=== PATIENT | male | born 1935 | race Caucasian/White ===

== ENCOUNTER 2020-05-29 07:55 | Emergency (ER) | payer MEDICARE ==
--- NOTE | 2020-05-29 08:24 | ED Physician Documentation ---
PD HPI BACK PAIN - Stated complaint Stated Complaint: BACK PX - Chief complaint Chief Complaint: Back Pain - History obtained from History obtained from: Patient, Family - History of Present Illness Timing - onset: How many weeks ago (1) Timing - duration: Weeks (1) Pain level max: 6 Pain level now: 2 Location: Lower Quality: Pain Associated symptoms: No: Fever, Weakness, Numbness, Incontinent of urine, Unable to urinate, Hematuria, Incontinent of stool Improves with: Rest Worsened by: Movement, Other (sitting) Contributing factors: No: Anticoagulated, Cancer, IVDA - Additional information Additional information: Patient is an 85-year-old male who presents after a ground-level fall 1 week ago. Landing on his buttocks. Has been complaining of increased sacrum and coccyx pain since that time. Worse with sitting and standing. Nothing makes it better. No vomiting. No loss of bowel or bladder control. No numbness or tingling. Review of Systems Constitutional: denies: Fever, Chills Respiratory: denies: Cough GI: denies: Nausea, Vomiting, Diarrhea Skin: denies: Rash Musculoskeletal: denies: Neck pain, Back pain Neurologic: denies: Headache PD PAST MEDICAL HISTORY - Present Medications Home Medications: Ambulatory Orders Medication Instructions Recorded Confirmed Aspirin Chewable [St El 81 mg PO DAILY 05/29/20 05/29/20 Aspirin] HYDROcod/ACETAM 5/325 [[place] 5/325] 1 - 2 ea PO Q6H PRN #14 tab 05/29/20 Lisinopril [Prinivil] 5 mg PO DAILY 05/29/20 05/29/20 Melatonin 3 mg PO DAILY PM 05/29/20 05/29/20 Simvastatin [Zocor] 40 mg PO DAILY 05/29/20 05/29/20 bisoproloL fumarate [Bisoprolol 2.5 mg PO DAILY 05/29/20 05/29/20 Fumarate] - Allergies Allergies/Adverse Reactions: Allergies Allergy/AdvReac Type Severity Reaction Status Date / Time No Known Drug Allergies Allergy Verified 05/29/20 08:11 PD ED PE NORMAL - Vitals Vital signs reviewed: Yes - General General: Alert and oriented X 3, No acute distress - HEENT HEENT: Moist mucous membranes - Neck Neck: Supple, no meningeal sign - Cardiac Cardiac: RRR - Respiratory Respiratory: No respiratory distress, Clear bilaterally - Abdomen Abdomen: Soft, Non tender, Non distended - Back Back: No spinal TTP (No tenderness palpation over the lumbar spine, there is tenderness over the sacrum and coccyx. No ecchymosis is visible. No soft tissue swelling.) - Derm Derm: Warm and dry, Other (Slight skin breakdown on the buttocks. No signs of infection) - Extremities Extremities: No edema - Neuro Neuro: Alert and oriented X 3 - Psych Psych: Normal mood, Normal affect Results - Vitals Vitals: Vital Signs - 24 hr 05/29/20 05/29/20 08:07 09:42 Temperature 36.0 C L 36.1 C L Heart Rate 76 69 Respiratory 16 16 Rate Blood Pressure 131/79 H 164/95 H O2 Saturation 96 98 Oxygen O2 Source Room air - Rads (name of study) CT pelvis Radiology: Prelim report reviewed, EMP read contemporaneously, See rad report PD MEDICAL DECISION MAKING - ED course Complexity details: reviewed results, re-evaluated patient, considered differential, d/w patient ED course: 85-year-old male with a sacral contusion. No acute findings on CT of the pelvis other than likely arthritis versus an avulsion fracture near the right anterior acetabulum, no tenderness or symptoms at this area however, doubt that this is clinically relevant at this point. A dressing was applied to the early sacral decubitus ulcer. We will have him follow-up with his doctor for referral to wound care. Patient and family counseled regarding signs and symptoms for which I believe and urgent re-evaluation would be necessary. Patient with good understanding of and agreement to plan and is comfortable going home at this time This document was made in part using voice recognition software. While efforts are made to proofread this document, sound alike and grammatical errors may occur. Departure - Departure Disposition: Home, Self Care Clinical Impression: Sacral contusion Qualifiers: Encounter type: initial encounter Qualified Code(s): S30.0XXA - Contusion of lower back and pelvis, initial encounter Sacral decubitus ulcer Qualifiers: Pressure injury stage: stage 1 Qualified Code(s): L89.151 - Pressure ulcer of sacral region, stage 1 Condition: Good Instructions: Pressure Ulcer Reduce Patient Risk, ED Contusion Sacrum Coccyx Follow-Up: your,doctor in 1 week [Other] Prescriptions: HYDROcod/ACETAM 5/325 [[place] 5/325] 1 - 2 ea PO Q6H PRN #14 tab PRN Reason: Pain Comments: Follow-up with your doctor for further care. They may need to order wound care to ensure that the sacral ulcer does not get any worse. There are no acute findings on CT scan. Do not drink alcohol or drive while on narcotic pain medicine. Note that many narcotic pain relievers also contain tylenol/acetaminophen. Please ensure that your total dose of acetaminophen from all sources does not exceed 3 grams (3000mg) per day. You may constipated on this medication, take a stool softener such as "Colace" twice a day while you are on it. Also recommend a ntxd-[id number] laxative such as senna or MiraLAX any day that you do not have a bowel movement. If you received narcotic pain medication in the emergency department, do not drive or operate machinery for the next 24 hours. Discharge Date/Time: 05/29/20 09:47
--- NOTE | 2020-05-29 09:13 | CT Report ---
PROCEDURE: PELVIS WO INDICATIONS: fall, pelvic/sacrum pain TECHNIQUE: Noncontrast 3 mm axial sections acquired through the bony pelvis, with coronal and sagittal reformatt ing. For radiation dose reduction, the following was used: automated exposure control, adjustment of mA and/or kV according to patient size. COMPARISON: None. FINDINGS: Image quality: Excellent. Bones: Left hip arthroplasty is present. There is a questionable ossification adjacent to the anteri or right acetabulum seen on series 3 image 47 and series 7 image 91. Remaining osseous structures lizzie ear intact. Soft tissues: Soft tissues of the pelvis are grossly within normal limits. IMPRESSION: 1. Questionable avulsion injury versus degenerative change/remote trauma at the right anterior acetab ulum. Recommend correlation to area of pain. If overall symptoms persist, follow-up imaging with MRI may be obtained for evaluation of occult injury. Reviewed by: Shira Mcghee MD on 05/29/2020 8:11 AM [facility] Approved by: Shira Mcghee MD on 05/29/2020 8:11 AM [facility] Station ID: [id number]
[2020-05-29 09:43] VITALS: BP 164/95
== END 2020-05-29 09:47 | disposition home or self-care (01) ==
LOC: ED 07:55
DX: S30.0XXA Contusion of lower back and pelvis, initial encounter (principal); W05.0XXA Fall from non-moving wheelchair, initial encounter; Y93.89 Activity, other specified; L89.151 Pressure ulcer of sacral region, stage 1; Z96.642 Presence of left artificial hip joint; Z79.82 Long term (current) use of aspirin
CPT/HCPCS: 99284

== ENCOUNTER 2020-09-21 07:48 | Outpatient (CLI) | payer MEDICARE | END 2020-09-21 23:59 | disposition critical access hospital (66) | LOC: EMS 07:48 | DX: R40.4 Transient alteration of awareness (principal); R29.810 Facial weakness | CPT/HCPCS: A0425; A0427 ==

== ENCOUNTER 2020-09-21 08:08 | Inpatient (IN) | payer MEDICARE ==
--- NOTE | 2020-09-21 08:28 | ED Physician Documentation ---
PD HPI SYNCOPE - Stated complaint Stated Complaint: SYNCOPE VS STROKE - History obtained from History obtained from: Patient, EMS, Caregiver - History of Present Illness Timing - onset: How many minutes ago (30), Today Duration: Minutes (less than a minute) Preceding symptoms: Generalized weakness, Other (he says he felt warmth/flush and then not remembering until awoke with caregiver attending to him. He does remember EMS coming after that. Denies chest pain, headache.). No: Chest pain Contributing factors: Exertion (was out of care facility yesterday with family and had barbecue with moderate activity. He states he did not feel exerted though.). No: Recent med change, Decreased PO intake Similar symptoms before: Has not had sx before Recently seen: Not recently seen Review of Systems Constitutional: denies: Fever, Chills Nose: denies: Rhinorrhea / runny nose, Congestion Throat: denies: Sore throat Cardiac: reports: Pedal edema. denies: Chest pain / pressure, Palpitations, Calf pain Respiratory: denies: Dyspnea, Cough GI: denies: Abdominal Pain, Nausea, Vomiting, Diarrhea Skin: denies: Abrasion (s), Laceration (s) Musculoskeletal: reports: Extremity pain (right shoulder pain and stiffness normally, with feeling weaker in mornings "until it loosens up". Gets PT on the shoulder. Does not feel it is weaker than usual today, and no leg/face weakness.) Neurologic: reports: Syncope. denies: Focal weakness, Numbness, Headache, Head injury PD PAST MEDICAL HISTORY - Past Medical History Cardiovascular: Hypertension, High cholesterol, Other Respiratory: None Neuro: None Endocrine/Autoimmune: None GI: None : None HEENT: None Psych: None Musculoskeletal: None Derm: None - Past Surgical History Past Surgical History: Yes Ortho: Hip replacement Derm: Skin cancer surgery - Present Medications Home Medications: Ambulatory Orders Medication Instructions Recorded Confirmed Aspirin Chewable [St El 81 mg PO DAILY 05/29/20 09/21/20 Aspirin] HYDROcod/ACETAM 5/325 [[place] 5/325] 1 - 2 ea PO Q6H PRN #14 tab 05/29/2009/02 Melatonin 6 mg PO DAILY PM 05/29/20 09/21/20 Simvastatin [Zocor] 40 mg PO DAILY 05/29/20 09/21/20 bisoproloL fumarate [Bisoprolol 2.5 mg PO DAILY 05/29/20 09/21/20 Fumarate] lisinopriL [Prinivil] 2.5 mg PO DAILY 05/29/20 09/21/20 - Allergies Allergies/Adverse Reactions: Allergies Allergy/AdvReac Type Severity Reaction Status Date / Time acetaminophen [From Percocet] AdvReac Dizziness Verified 09/21/20 08:37 oxycodone [From Percocet] AdvReac Dizziness Verified 09/21/20 08:37 - Social History Does the pt smoke?: No Smoking Status: Never smoker Does the pt drink ETOH?: No Does the pt have substance abuse?: No - Immunizations Immunizations are current?: Yes - POLST Patient has POLST: No PD ED PE NORMAL - Vitals Vital signs reviewed: Yes - General General: Alert and oriented X 3, No acute distress, Well developed/nourished - HEENT HEENT: Atraumatic, Pharynx benign - Neck Neck: Supple, no meningeal sign, No adenopathy - Cardiac Cardiac: RRR, No murmur - Respiratory Respiratory: No: Clear bilaterally (faint crackles in bases) - Abdomen Abdomen: Soft, Non tender - Derm Derm: Normal color, Warm and dry - Extremities Extremities: No calf tenderness / cord, Other (right shoulder stiffness and weak ROM. 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 1+ edema in both lower legs with chronic stasis color changes. ) - Neuro Neuro: Alert and oriented X 3, No motor deficit, Normal speech Eye Opening: Spontaneous Motor: Obeys Commands Verbal: Oriented GCS Score: 15 Results - Vitals Vitals: Vital Signs - 24 hr 09/21/20 09/21/20 09/21/20 08:07 08:10 09:00 Temperature 36.8 C Heart Rate 72 66 Heart Rate [ Monitoring electrodes] Respiratory 20 28 H Rate Blood Pressure 136/72 H 127/62 Blood Pressure [Right Brachial artery] O2 Saturation 89 L 94 90 L 09/21/20 09/21/20 09/21/20 09:30 10:00 10:30 Temperature Heart Rate 73 69 71 Heart Rate [ Monitoring electrodes] Respiratory 26 H 28 H 25 H Rate Blood Pressure 155/49 H 130/74 132/53 H Blood Pressure [Right Brachial artery] O2 Saturation 94 94 94 09/21/20 09/21/2021 11:00 11:47 12:12 Temperature 36.4 C L Heart Rate 89 Heart Rate [ 86 Monitoring electrodes] Respiratory 18 16 Rate Blood Pressure 120/48 L Blood Pressure 124/63 [Right Brachial artery] O2 Saturation Oxygen O2 Source Nasal cannula - EKG (time done) 08:13 Rate: Rate (enter#) (70) Rhythm: Atrial fibrillation Intervals: Wide QRS Ischemia: No: ST elevation c/w ischemia, ST depression - Labs Labs: Laboratory Tests 09/21/20 09/21/20 09/21/20 08:39 08:39 08:39 WBC 5.8 RBC 3.96 L Hgb 12.0 L Hct 38.3 L MCV 96.7 H MCH 30.3 MCHC 31.3 L RDW 16.0 H Plt Count 83 L MPV 12.1 H Neut # (Auto) 4.7 Lymph # (Auto) 0.6 L [place] # (Auto) 0.4 Eos # (Auto) 0.0 Baso # (Auto) 0.0 Absolute Nucleated RBC 0.00 Nucleated RBC % 0.0 Sodium 145 Potassium 4.9 Chloride 109 Carbon Dioxide 26 Anion Gap 10.0 BUN 32 H Creatinine 1.0 Estimated GFR (MDRD) 71 L Glucose 157 H Calcium 8.8 Magnesium 2.2 Total Bilirubin 0.9 AST 84 H ALT 109 H Alkaline Phosphatase 69 Troponin I High Sens 44.8 H* B-Natriuretic Peptide Total Protein 6.5 L Albumin 3.3 Globulin 3.2 Albumin/Globulin Ratio 1.0 Lipase 18 L Nasal Adenovirus (PCR) Nasal B. parapertussis DNA (PCR) Nasal Coronavir 229E PCR Nasal Coronavir HKU1 PCR Nasal Coronavir NL63 PCR Nasal Coronavir OC43 PCR Nasal Enterovir/Rhinovir PCR Nasal Influenza B PCR Nasal Influenza A PCR Nasal Parainfluen 1 PCR Nasal Parainfluen 2 PCR Nasal Parainfluen 3 PCR Nasal Parainfluen 4 PCR Nasal RSV (PCR) Nasal Screen MRSA (PCR) Nasal B.pertussis DNA PCR Nasal C.pneumoniae (PCR) [place] Human Metapneumo PCR Nasal M.pneumoniae (PCR) Nasal SARS-CoV-2 (PCR) 09/21/20 09/21/20 09/21/20 08:39 10:08 11:13 WBC RBC Hgb Hct MCV MCH MCHC RDW Plt Count MPV Neut # (Auto) Lymph # (Auto) [place] # (Auto) Eos # (Auto) Baso # (Auto) Absolute Nucleated RBC Nucleated RBC % Sodium Potassium Chloride Carbon Dioxide Anion Gap BUN Creatinine Estimated GFR (MDRD) Glucose Calcium Magnesium Total Bilirubin AST ALT Alkaline Phosphatase Troponin I High Sens 52.9 H* B-Natriuretic Peptide 1806 H Total Protein Albumin Globulin Albumin/Globulin Ratio Lipase Nasal Adenovirus (PCR) NOT DETECTED Nasal B. parapertussis DNA (PCR) NOT DETECTED Nasal Coronavir 229E PCR NOT DETECTED Nasal Coronavir HKU1 PCR NOT DETECTED Nasal Coronavir NL63 PCR NOT DETECTED Nasal Coronavir OC43 PCR NOT DETECTED Nasal Enterovir/Rhinovir PCR NOT DETECTED Nasal Influenza B PCR NOT DETECTED Nasal Influenza A PCR NOT DETECTED Nasal Parainfluen 1 PCR NOT DETECTED Nasal Parainfluen 2 PCR NOT DETECTED Nasal Parainfluen 3 PCR NOT DETECTED Nasal Parainfluen 4 PCR NOT DETECTED Nasal RSV (PCR) NOT DETECTED Nasal Screen MRSA (PCR) Nasal B.pertussis DNA PCR NOT DETECTED Nasal C.pneumoniae (PCR) NOT DETECTED [place] Human Metapneumo PCR NOT DETECTED Nasal M.pneumoniae (PCR) NOT DETECTED Nasal SARS-CoV-2 (PCR) NOT DETECTED 09/21/20 12:50 WBC RBC Hgb Hct MCV MCH MCHC RDW Plt Count MPV Neut # (Auto) Lymph # (Auto) [place] # (Auto) Eos # (Auto) Baso # (Auto) Absolute Nucleated RBC Nucleated RBC % Sodium Potassium Chloride Carbon Dioxide Anion Gap BUN Creatinine Estimated GFR (MDRD) Glucose Calcium Magnesium Total Bilirubin AST ALT Alkaline Phosphatase Troponin I High Sens B-Natriuretic Peptide Total Protein Albumin Globulin Albumin/Globulin Ratio Lipase Nasal Adenovirus (PCR) Nasal B. parapertussis DNA (PCR) Nasal Coronavir 229E PCR Nasal Coronavir HKU1 PCR Nasal Coronavir NL63 PCR Nasal Coronavir OC43 PCR Nasal Enterovir/Rhinovir PCR Nasal Influenza B PCR Nasal Influenza A PCR Nasal Parainfluen 1 PCR Nasal Parainfluen 2 PCR Nasal Parainfluen 3 PCR Nasal Parainfluen 4 PCR Nasal RSV (PCR) Nasal Screen MRSA (PCR) NEGATIVE Nasal B.pertussis DNA PCR Nasal C.pneumoniae (PCR) [place] Human Metapneumo PCR Nasal M.pneumoniae (PCR) Nasal SARS-CoV-2 (PCR) - Rads (name of study) chest xray Radiology: Prelim report reviewed (some vascular congestion), See rad report PD MEDICAL DECISION MAKING - ED course Complexity details: considered differential (sounds like syncopal episode. Concern for cardiac cause, with some appearance of CHF on exam/cxr/BNP. Has elevated troponin mildly. Will need further cardiac eval. EMS had concern of CVA, but symptoms really do not sound like cerebrovascular. ), d/w patient Departure - Departure Disposition: ED Place in Observation Clinical Impression: Elevated troponin Episode of syncope Qualifiers: Syncope type: unspecified Qualified Code(s): R55 - Syncope and collapse CHF (congestive heart failure) Qualifiers: Heart failure type: unspecified Qualified Code(s): I50.9 - Heart failure, unspecified Right shoulder pain Qualifiers: Chronicity: chronic Qualified Code(s): M25.511 - Pain in right shoulder Condition: Stable Discharge Date/Time: 09/21/20 11:37
[2020-09-21 08:45] LABS: BASOPHILS % (AUTO) 0.5 %; EOSINOPHILS % (AUTO) 0.2 %; HCT - HEMATOCRIT 38.3 % (42.0-52.0); LYMPHOCYTES # (AUTO) 0.6 10^3/uL (1.5-3.5); LYMPHOCYTES % (AUTO) 10.7 %; MEAN CORPUSCULAR HEMOGLOBIN 30.3 pg (27.0-31.0); MEAN CORPUSCULAR HGB CONC 31.3 g/dL (32.0-36.0); MEAN CORPUSCULAR VOLUME 96.7 fL (80.0-94.0); MEAN PLATELET VOLUME 12.1 fL (7.4-11.4); MONOCYTES # (AUTO) 0.4 10^3/uL (0.0-1.0); MONOCYTES % (AUTO) 7.1 %; NEUTROPHILS # (AUTO) 4.7 10^3/uL (1.5-6.6); NEUTROPHILS % (AUTO) 81.2 %; PLT - PLATELET COUNT 83 10^3/uL (130-450); RED BLOOD COUNT 3.96 10^6/uL (4.70-6.10); WHITE BLOOD COUNT 5.8 x10^3/uL (4.8-10.8)
--- NOTE | 2020-09-21 08:46 | XRAY Report ---
PROCEDURE: Chest 1 View X-Ray INDICATIONS: Chest Pain TECHNIQUE: One view of the chest was acquired. COMPARISON: FINDINGS: Surgical changes and devices: Sternotomy wires, prior CABG or heart valve surgery.. Lungs and pleura: No pleural effusions or pneumothorax. Lungs are mildly edematous.. Mediastinum: Mediastinal contours appear normal. Heart size is at the upper limits of normal. Bones and chest wall: No suspicious bony lesions. Overlying soft tissues appear unremarkable. IMPRESSION: Pulmonary edema pattern, prior CABG or heart valve surgery. Suspect there is an acute exacerbation of chronic CHF. Reviewed by: Chidi Townsend MD on 09/21/2020 8:44 AM PDT Approved by: Chidi Townsend MD on 09/21/2020 8:44 AM PDT Station ID: [id number]
[2020-09-21 08:59] LABS: ALBUMIN 3.3 g/dL (3.2-5.5); BILIRUBIN,TOTAL 0.9 mg/dL (0.2-1.0); CALCIUM 8.8 mg/dL (8.5-10.3); MAGNESIUM 2.2 mg/dL (1.7-2.8); POTASSIUM 4.9 mmol/L (3.5-5.0); TOTAL PROTEIN 6.5 g/dL (6.7-8.2)
[2020-09-21] MEDS ORDERED: FUROSEMIDE 20 MG/2 ML VIAL IVP STA (09:46)
[2020-09-21] MEDS ORDERED: SODIUM CHLORIDE FLUSH 0.9% 10 ML SYRINGE IVP PRN ×2 (10:48→12:59)
[2020-09-21] MEDS ORDERED: ONDANSETRON 4 MG/2 ML VIAL IVP PRN (10:48)
[2020-09-21] MEDS ORDERED: HYDROcod/ACETAM 5/325 MG TABLET PO PRN (11:02)
--- NOTE | 2020-09-21 11:12 | HISTORY & PHYSICAL EXAMINATION ---
Chief Complaint - Chief Complaint Chief Complaint: Fainted History of Present Illness - Admitted From Admitted From:: ED - History Obtained From History obtained from: ED provider and patient - History of Present Illness HPI Comment/Other: This is a 85-year-old white male with a history of a porcine mitral valve replacement and arthritis for a frozen rigjht shoulder for which he gets physical therapy. The patient lives at [facility]. The patient was found by his caregiver slumped in his chair for about 30 seconds. Paramedics were called, he was awake when they had arrived and he can remember their arrival. The first blood pressure at the scene was stable as well as glucose. In the emergency room she told the ER provider that he "felt warm" just before fainting . This is never happened to him before. The patient states that he had a weekend out with his family, and attended a barbecue on Father's Day (yesterday) but did not overdo it. He does admit to slight shortness of breath with activity over the past 2 days. The patient is being placed in Observation status on the Hospitalist team to evaluate a syncopal episode. History - Past Medical History Cardiovascular: reports: Hypertension, High cholesterol Respiratory: reports: None Neuro: reports: None Endocrine/Autoimmune: reports: None GI: reports: None : reports: None HEENT: reports: None Psych: reports: None Musculoskeletal: reports: None Derm: reports: None MRSA Hx?: No Other Past Medical History: essential tremors - Past Surgical History Ortho: reports: Hip replacement Cardiovascular: reports: Valve replacement Derm: reports: Skin cancer surgery - Family & Social History Living arrangement: Assisted living Living Situation: With spouse/s.o. Social History Notes: The patient never smoked cigarettes. The patient drinks rare alcohol, only on holidays. No marijuana use history. 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 When he was hospitalized for bacteremia, he was too weak to take care of her and they sold their house in [place], moved to [facility] to be closer to their son and currently living [facility] assisted living, for the past 4 mos. - Substance History Use: Uses substance without health or social issues: NONE - POLST Patient has POLST: No Meds/Allgy - Home Medications Home Medications: Ambulatory Orders Medication Instructions Recorded Confirmed Aspirin Chewable [St El 81 mg PO DAILY 05/29/20 09/21/20 Aspirin] HYDROcod/ACETAM 5/325 [[place] 5/325] 1 - 2 ea PO Q6H PRN #14 tab 05/29/20 09/21/20 Melatonin 6 mg PO DAILY PM 05/29/20 09/21/20 Simvastatin [Zocor] 40 mg PO DAILY 05/29/20 09/21/20 bisoproloL fumarate [Bisoprolol 2.5 mg PO DAILY 05/29/20 09/21/20 Fumarate] lisinopriL [Prinivil] 2.5 mg PO DAILY 05/29/20 09/21/20 - Allergies Allergies/Adverse Reactions: Allergies Allergy/AdvReac Type Severity Reaction Status Date / Time acetaminophen [From Percocet] AdvReac Dizziness Verified 09/21/20 08:37 oxycodone [From Percocet] AdvReac Dizziness Verified 09/21/20 08:37 Review of Systems - Cardiovascular Cariovascular: reports: Edema (Patient said the edema was never definitely diagnosed as venous insufficiency or from CHF), Exertional dyspnea, Other (Yesterday the son heard wheezing when the father was walking up an incline (at a Father's Day [facility])) - Neurological Neurological: reports: Other (Head and shoulder tremor, occasionally hand tremor) - All Other Systems All Other Systems: reports: Reviewed and negative Exam - Vital Signs Vital Signs: Vital Signs x48h Temp Pulse Resp BP Pulse Ox 09/21/20 09:30 73 26 H 155/49 H 94 09/21/20 09:00 66 28 H 127/62 90 L 09/21/20 08:10 94 09/21/20 08:07 36.8 C 72 20 136/72 H 89 L Conclusion/Plan - Problem List (1) Episode of syncope Conclusion/Plan: The fact that he felt hot before this event suggest that he had vasodilation and was maybe vasovagal, and this event may have been caused by bradycardia causing brain hypoperfusion. Will place the patient on telemetry, monitor his rhythm (already suspect that his rhythm is abnormal). Will hold the B-miguel (see below). Obtain orthostatic vital signs. Obtain an Echo. Qualifiers: Syncope type: unspecified Qualified Code(s): R55 - Syncope and collapse (2) CHF (congestive heart failure) Conclusion/Plan: BNP of greater than thousand suggests he might have systolic heart failure. The patient has never been here before, there is no information about his LVEF. Will give IV twice daily Lasix. Follow I's and O's, daily weights, BMP and magnesium daily. Obtain complete Echo Information about his previous cardiac history from his PCP or securities vault supervisor would be helpful. We will continue his aspirin, lisinopril and statin Qualifiers: Heart failure type: unspecified Qualified Code(s): I50.9 - Heart failure, unspecified (3) Prerenal azotemia Conclusion/Plan: He is not on any diuretic but admission labs show prerenal azotemia, suggesting intravascular volume depletion. He will have a very narrow range of not being over diuresed by using Lasix for CHF and dehydrating further, vs improving volume depletion. We will not give IV fluids because of the CHF but order gentle diuresis. Follow BMP daily. Avoid nephrotoxins (4) Abnormal EKG Conclusion/Plan: His rhythm on EKG shows no obvious P waves, this may be junctional escape rhythm with a narrow QRS complex and regular rhythm . Placed on telemetry. We will hold his beta-miguel to let it washout, assess if his P waves come back. This rhythm is confirmed may have been the cause of the syncope and with then plan to reach his [place], possible transfer needed for pacemaker. (5) S/P MVR (mitral valve replacement) Conclusion/Plan: As per history. We will be obtaining a complete Echo that will evaluate MVR function. (6) HTN (hypertension) Conclusion/Plan: Plan to continue the lisinopril but stop the beta-miguel because of the rhythm problem. Check orthostatic vital signs (7) Hyperlipidemia Conclusion/Plan: Continue his statin medication. (8) Right shoulder pain Conclusion/Plan: Pain medications if needed (possibly NSAIDs), warm packs, gentle range of motion exercises while he is here Qualifiers: Chronicity: chronic Qualified Code(s): M25.511 - Pain in right shoulder; G89.29 - Other chronic pain - Lab Results Fish Bones: 09/21/20 08:39 09/21/20 08:39
--- NOTE | 2020-09-21 11:19 | PHARMACY PROGRESS NOTE ---
- Best Possible Medication History Admit Date and Time: 09/21/20 1047 Processed by: Nursing Medication History completed: Yes (MED REC COMPLETED BY NURSING) As the person ultimately responsible for medication therapy, providers are able to order a medication from an existing home medication list in [facility] via the "Reconcile Routine" prior to Confirmation of that medication by patient support representative. Such practice is discouraged except when the physician, in their clinical judgment, deems that a medical need exists for a medication without regard to previous use.
[2020-09-21 12:38] LABS: B. PARAPERTUSSIS- RESP PCR PAN NOT DETECTED; B. PERTUSSIS- RESP PCR PANEL NOT DETECTED; C. PNEUMONIAE- RESP PCR PANEL NOT DETECTED; CORONAVIRUS 229E-RESP PCR NOT DETECTED; CORONAVIRUS HKU1-RESP PCR NOT DETECTED; CORONAVIRUS NL63-RESP PCR NOT DETECTED; CORONAVIRUS OC43-RESP PCR NOT DETECTED; HUMAN METAPNEUMOVIRUS NOT DETECTED; INFLUENZA A- RESP PCR PANEL NOT DETECTED; INFLUENZA B - RESP PCR PANEL NOT DETECTED; M. PNEUMONIAE- RESP PCR PANEL NOT DETECTED; PARAINFLUENZA VIRUS 1 NOT DETECTED; PARAINFLUENZA VIRUS 2 NOT DETECTED; PARAINFLUENZA VIRUS 3 NOT DETECTED; PARAINFLUENZA VIRUS 4 NOT DETECTED; RHINOVIRUS/ENTEROVIRUS NOT DETECTED; RSV- RESP PCR PANEL NOT DETECTED; SARS-CoV-2 -RESP PCR PANEL NOT DETECTED
--- NOTE | 2020-09-21 12:44 | PROVIDER PROGRESS NOTE ---
Hospitalist Cross-cover Note - Cross-Cover Note Cross-Cover Note: The patient had just arrived from the ED to his room and was on telemetry. He was being evaluated by his nurse, the lunch tray had arrived. The nurse noticed that he was not responding to her and looked pale and was diaphoretic. At the same time on her Vocera, the telemetry MARKET INVESTIGATOR called and the RN and said that the patient was in V. tach. The nurse tried to awaken him and he there was no response. She called a BEBET[facility] BLUE at approx 1230 pm. When we on the CODE BLUE team arrived, he was awake and breathing on his own looking around. I evaluated him at this time: blood pressure was 140/50, heart rate was 73 and regular. The patient had mild shortness of breath at rest and respiratory rate about 28. Skin was pale and diaphoretic but extremities are warm. At a 45 degree angle, bibasilar Rales heard at the bases, regular rhythm, no mitral prolapse click or any mitral regurg murmur heard. Abdomen soft. Extremities have 3+ pitting edema with venous stasis changes to the mid shins. Neuro: he has a resting tremor of his head and jaw, oriented x3, memory is spotty. The rhythm strip showed monomorphic V. tach, at a rapid rate of 200, for about 20 sec, it stopped by slowing down. He then had sinus rhythm w/ 3rd degree AV block with ventr rate about 40 for 10 sec, then sinus rhythm with marked 1st degree AVB of 440 msec vs junctional rhythm, at a ventr rate 60. Impression: 1) V. tach, sustained and symptomatic 2) Syncope, recurrent 3) CHF with pulmonary edema and leg edema 4) Aortic valve replacement, is clinically stable by clinical exam 5) Resting tremor of head, not diagnosed as Parkinson's yet Plan: Admit to full inpatient status from Observation. Transfer to the ICU on telemetry. Cycle troponins. Recheck his EKG for rhythm and for ischemic changes. Obtain STAT Echo. Apply external pacer. Begin amiodarone drip. waiter/waitress cocktail lounge to help obtain records of his cardiac status from his PCP or his previous Power Sweeper Operator in [place]. Transfer to Cardiology at higher level of care. This patient has only met his PCP once, assigned to him by [place]. He has not seen his Power Sweeper Operator in about 4 years and has not yet been assigned a Power Sweeper Operator by [place]. We will reach out to [facility] regarding the above plan and where to transfer this patient to his next site of care. The above plan was discussed with the son at bedside, who had just arrived and was in the room. The son had not witnessed the V. tach syncopal episode. The patient's son also gave me more detailed information regarding his past medical history. CRITICAL CARE TIME SPENT: 60 min (examining patient, reviewing rhythm strips, ordering admission/ transfer to ICU, setting up pacemaker patches, threshold rate and backup pacer rate, requesting for records, ordering meds, updating the patient and the son). Addendum: The EKG done now shows: Junctional rhythm, rate 68, left IVCD, poor R wave progression, flat T waves in the lateral leads. These are all similar to the EKG from 812. There is now prolonged QTC at 546 ms which is new since 812 today.
[2020-09-21] MEDS ORDERED: AMIODARONE 150 MG/100 ML 100 ML IV ONE (13:04)
[2020-09-21] MEDS ORDERED: FUROSEMIDE 20 MG/2 ML VIAL IVP SCH (14:00)
[2020-09-21] MEDS ORDERED: AMIODARONE 360 MG/200 ML 200 ML IV ONE (14:00)
[2020-09-21] MEDS ORDERED: LIDOCAINE 2% URO-JET 5 ML SYRINGE UR ONE (15:03)
[2020-09-21] MEDS ORDERED: LIDOCAINE-MPF 1% 5 ML VIAL ONE (15:08)
[2020-09-21] MEDS ORDERED: SODIUM CHLORIDE 0.45% 1,000 ML IV ONE (16:17)
[2020-09-21 16:52] LABS: ABG BASE EXCESS -3.2 mmol/L (-2.0-3.0); ABG HCO3 21.8 mmol/L (22.0-26.0); ABG OXYGEN SATURATION 95 % (94-98); ABG PCO2 39 mmHg (34-45); ABG PH 7.37 (7.35-7.45); ABG PO2 79 mmHg (80-100); ALLEN TEST POSITIVE
[2020-09-21] MEDS ORDERED: DEXTROSE 5% 250 ML IV ONE (17:00)
[2020-09-21] MEDS ORDERED: SODIUM CHLORIDE FLUSH 0.9% 10 ML SYRINGE IVP SCH ×2 (17:00)
[2020-09-21] MEDS ORDERED: AMIODARONE 150 MG/3 ML VIAL IV ONE (17:00)
--- NOTE | 2020-09-21 17:26 | PROVIDER PROGRESS NOTE ---
Hospitalist Cross-cover Note - Cross-Cover Note Cross-Cover Note: The patient was transferred to the ICU and given iv amiodarone per protocol: 150 mg bolus then drip for 6 hours at the higher rate to follow 18 hours at the lower rate. he was put on O2 at 2L n.c. He started having episodes of ventricular couplets, triplets, alternating with third-degree heart block. The ICU nurse had him cough several times and the PVCs subsided. He then had another episode of V. tach and a CODE BLUE was called. CPR was started by the son who was in his ICU room. Our CODE BLUE team then took over. The patient was cardioverted with 200 J of synchronized cardioversion. CPR was resumed because he went into third-degree heart block with no palpable pulse. The pacemaker was turned on at an mA of 12, heart rate of 70 and he was capturing, CPR stopped, pacing this way gave him a blood pressure that perfused his organs with BP at approximately 105/58. This Hospitalist reached out to get him transferred for higher level of care. [place] was called, who advised any location due to his critical ,status. There were no ICU beds available at [facility]. I next spoketo the Transfer Center at [place], then spoke to the Assistant Football Coach on-call, Dr. Walton, at [facility] in [place] who agreed he needed transfer. I then contacted the Veterinary Practice Manager at [facility] in [place], Dr. Rader, who accepted him to the ICU. After approximately 25 minutes, he went into V. tach again at a rate of 220. We again began CPR and the defibrillator was charged and he received 200 J of synchronized cardioversion successfully and went into junctional rhythm at a slow rate, the pacemaker was again turned on with an mA of 12, rate of 70 and his BP was 80/50. He was pale and clammy. A Levophed drip was ordered to be mixed and ready on standby. Normal saline was started at 80 cc/hr. His BP improved to 120/50. RT started bag mask ventilation, then he was put on a venti- mask at 100%. His mentation was normal. [facility] was called to prepare for air transfer and they arrived. The patient again went into V. tach at a rate of 224, CPR was started, the defibrillator was charged and he was cardioverted synchronized at 200 J which brought him into normal sinus rhythm with a first-degree block. With this he maintained a good blood pressure of 130/ 60. He received another Amio bolus of 150 mg, and the Amio drip continued. ABG was done to assess his pH and it was stable: pH 7.38, PCO2 38, PO2 70. He was not intubated. During these events, the son was outside the room, he was updated intermittently. The patient was put in the care of the [facility] crew and just after putting him on their gurney he again went into V. tach at a rate of 200. He was rapidly cardioverted, synchronized, at mA of 200 J, successfully into sinus rhythm at a rate of 80. CRITICAL CARE TIME SPENT: 120 min (lead all the CODE BLUEs, perform synchronized cardioversion each time, gave orders for nursing, pharmacist, RT, [facility] crew and updated the son).
--- NOTE | 2020-09-21 17:30 | Discharge Plan ---
Discharge Plan Problem Reviewed?: Yes Disposition: 02 Transfer Acute Care Hosp Condition: Stable No Smoking: If you smoke, Please STOP! Call for help. Follow-up with: Rosa Montes MD [Primary Care Provider] -
[2020-09-21 17:56] VITALS: BP 101/86
[2020-09-21] MEDS ORDERED: SODIUM CHLORIDE 0.9% 500 ML IV ONE (19:28)
[2020-09-21] MEDS ORDERED: AMIODARONE 360 MG/200 ML 200 ML IV SCH (20:00)
[2020-09-21] MEDS ORDERED: ATORVASTATIN 10 MG TABLET PO SCH (21:00)
[2020-09-21] MEDS ORDERED: MELATONIN 3 MG PO SCH (21:00)
[2020-09-22] MEDS ORDERED: lisinopriL 5 MG TABLET PO SCH (09:00)
[2020-09-22] MEDS ORDERED: ASPIRIN CHEW 81 MG TABLET PO SCH (09:00)
== END 2020-09-21 16:40 | disposition short-term general hospital (02) | DRG 308 ==
LOC: EDUNIT# → ED 08:08 → MS3 10:47 → ICU 12:22 → OBSVTOIN 12:59
PROVIDERS: ADMIT Internal Medicine; ATTEND Internal Medicine
PROC: 5A12012 Performance of Cardiac Output, Single, Manual (ICD-10-PCS; principal; 2020-09-21)
PROC: 5A2204Z Restoration of Cardiac Rhythm, Single (ICD-10-PCS; 2020-09-21)
DX: I44.2 Atrioventricular block, complete (principal); I46.2 Cardiac arrest due to underlying cardiac condition; R55 Syncope and collapse; I47.2 Ventricular tachycardia; I11.0 Hypertensive heart disease with heart failure; I50.9 Heart failure, unspecified; E78.5 Hyperlipidemia, unspecified; G89.29 Other chronic pain; M75.01 Adhesive capsulitis of right shoulder; M19.011 Primary osteoarthritis, right shoulder; G25.0 Essential tremor; R94.31 Abnormal electrocardiogram [ECG] [EKG]; Z20.822 Contact with and (suspected) exposure to COVID-19; I87.8 Other specified disorders of veins; R79.89 Other specified abnormal findings of blood chemistry; Z96.649 Presence of unspecified artificial hip joint; Z79.82 Long term (current) use of aspirin; Z79.891 Long term (current) use of opiate analgesic; Z79.899 Other long term (current) drug therapy; Z95.3 Presence of xenogenic heart valve
CPT/HCPCS: 36415; 36600; 71045; 80053; 82803; 83690; 83735; 83880; 84484; 85025; 87150; 87631; 93005; 93306; 96374; 99284; 99285; G0378; J0282; 0202U